=== PATIENT | female | born 2000 | race African-American/Black ===

== ENCOUNTER 2024-09-15 04:43 | Emergency (ER) | payer OTHER ==
[~2024-09-15] VITALS: Ht 152.4 cm; Wt 71.9 kg
[2024-09-15 04:48] VITALS: BP 109/76; RESP 18; TEMP 98; O2SAT 100
[2024-09-15 04:50] VITALS: PULSE 117; O2SAT 100
== END 2024-09-15 05:06 | disposition left against medical advice (07) ==
LOC: ER 04:43
DX: O26.893 Other specified pregnancy related conditions, third trimester (principal); Z3A.34 34 weeks gestation of pregnancy
CPT/HCPCS: 99281